=== PATIENT | female | born 1960 | race Two or more races ===

== ENCOUNTER 2016-03-10 12:40 | Emergency (ER) | payer OTHER ==
[2016-03-10 12:46] VITALS: BP 133/81; PULSE 75; TEMP 97.6; BMI 23.9
--- NOTE | 2016-03-10 12:49 | PDOC ---
History of Present Illness - General Chief Complaint: Chest Pain Stated Complaint: CHEST PAIN, THROAT PAIN, DRY COUGH Time Seen by Provider: 03/10/16 12:46 History Source: Patient Exam Limitations: No Limitations - History of Present Illness Initial Comments: 03/10/16 12:49 This is a 55 yo F with a history of seasonal asthma Pt presents to the ER with a complaint of chest pain radiating to the throat Pt states, she was in her usual state of health until 4 days ago when she noted chest tightness Symptoms have been constant for the past 4 days She has noted diaphoresis at night (unsure if this is due to menopause?) Pt denies nausea No radiation of pain to the back, arm or jaw Pt also noted a dry cough She denies shortness of breath pt states she has modified her diet to avoid heavy meals - she is eating bread, pasta, tea No prior episodes like this Has not had an endoscopy Does report a history of epigastric burning with certain meals but never formally diagnosed with GERD Pt contacted her PMD 3 times, no response, came to the ER PMH: Asthma PSH: biopsy during (on throat?) Meds: albuterol prn ALL: PCN --> Social: denies tobacco use Family history: no history of early heart disease, mother has HTN GENERAL/CONSTITUTIONAL: No: fever, chills, weakness, loss of appetite. HEAD, EYES, EARS, NOSE AND THROAT: No: change in vision, ear pain, discharge, sore throat, throat swelling. CARDIOVASCULAR: Yes: chest pain/tightness No: lightheadedness, palpitations, syncope RESPIRATORY: No: cough, shortness of breath, wheezing, hemoptysis, stridor. GASTROINTESTINAL: No: nausea, vomiting, diarrhea, abdominal cramping, rectal bleeding, constipation. GENITOURINARY: No: dysuria, hematuria, frequency, urgency, flank pain. MUSCULOSKELETAL: No: back pain, neck pain, joint pain, muscle swelling or pain SKIN AND BREASTS: No: lesions, pallor, rash or easy bruising. NEUROLOGIC: No: headache, vertigo, paresthesias, weakness ENDOCRINE: No: unexplained weight gain or loss HEMATOLOGIC/LYMPHATIC: No: anemia, easy bleeding, swelling nodes. GENERAL: The patient is in no acute distress. HEAD: Normal with no signs of trauma. EYES: PERRLA, EOMI, sclera anicteric, conjunctiva clear. ENT: Ears normal, nares patent, oropharynx clear without exudates. Moist mucous membranes. NECK: Normal range of motion, supple without lymphadenopathy, JVD, or masses. LUNGS: Breath sounds equal, clear to auscultation bilaterally. No wheezes, and no crackles. HEART:Regular rate and rhythm, normal S1 and S2 without murmur, rub or gallop. No chest wall tenderness to palpation ABDOMEN: Soft, epigastric tenderness to palpation, otherwise nontender, normoactive bowel sounds. No guarding, no rebound. No masses palpable. EXTREMITIES: Normal range of motion, no edema. No clubbing or cyanosis. No erythema, or tenderness. NEUROLOGICAL: Cranial nerves II through XII grossly intact. Normal speech. No focal neurological deficits. MUSCULOSKELETAL: Back non-tender to palpation, no CVA tenderness SKIN: Warm, Dry, normal turgor, no rashes or lesions noted. 03/10/16 13:14 Past History - Past Medical History Allergies/Adverse Reactions: Allergies Allergy/AdvReac Type Severity Reaction Status Date / Time Penicillins Allergy Mild Hives Verified 03/10/16 12:44 Home Medications: Ambulatory Orders Albuterol Sulfate Inhaler - [Ventolin Hfa Inhaler -] 1 - 2 inh PO QID PRN Asthma: Yes (SEASONAL ONLY) - Psycho/Social/Smoking Cessation Hx Anxiety: No Suicidal Ideation: No Smoking History: Never smoked Hx Alcohol Use: No Drug/Substance Use Hx: No Substance Use Type: None *Physical Exam - Vital Signs Last Vital Signs Temp Pulse Resp BP Pulse Ox 97.6 F 75 18 133/81 100 03/10/16 12:40 03/10/16 12:40 03/10/16 12:40 03/10/16 12:40 03/10/16 12:40 Heart Score/ECG Review - History History: Slightly suspicious - Electrocardiogram EKG: Normal - Age Age: 45-65 - Risk Factors Based on the list above the patient has:: No risk factors known - Troponin Troponin: </= normal limit - Score Heart Score - Total: 1 #1 ECG reviewed & interpreted by me at: 13:14 General ECG Interpretation: Sinus Rhythm, Normal Rate, Normal Intervals, No acute ischemic changes ED Treatment Course - LABORATORY CBC & Chemistry Diagram: 03/10/16 13:10 03/10/16 13:10 Medical Decision Making - Medical Decision Making 03/10/16 13:15 Will do labs Will do EKG Will do CXR I have explained to this patient that she would benefit from an observation stay in the hospital as cardiac disease can not be entirely ruled out on one EKG or one set of labs Pt states she can not do that and would like to go home 03/10/16 14:06 03/10/16 14:07 Laboratory Tests 03/10/16 03/10/16 03/10/16 13:10 13:10 13:10 WBC 4.8 Hgb 11.7 Hct 35.4 Plt Count 299 Neutrophils % 50.1 Lymphocytes % 41.0 H Sodium 135 L Potassium 3.6 Chloride 100 Carbon Dioxide 27 BUN 12 Creatinine 0.7 D Random Glucose 87 Creatine Kinase 75 Troponin I < 0.03 L 03/10/16 14:[address] Hoskins covering Dr Duncan Pt will be sent to Cardiology Pt states she had gingerale and belched She felt much better At this time, she is not willing to stay in the ER Will discharge to home I have stressed the importance of prompt follow up and return to the ER immediately for any concerns or complaints OR persistence of symptoms She will try taking Zantac I discussed the physical exam findings, ancillary test results and final diagnoses with the patient. I answered all of the patient's questions. The patient was satisfied with the care received and felt comfortable with the discharge plan and treatment plan. The patient will call their primary care physician within 24 hours to arrange follow-up and will return to the Emergency Department with any new, persistent or worsening symptoms. Clinical impression: Chest tightness *DC/Admit/Observation/Transfer Diagnosis at time of Disposition: Chest tightness - Discharge Dispostion Disposition: HOME Condition at time of disposition: Stable Admit: No - Referrals Referrals: Jarvis Duncan MD [Primary Care Provider] - - Patient Instructions Printed Discharge Instructions: DI for Atypical Chest Pain, DI for Chest Pain Additional Instructions: Ruth Thank you for coming in to the ER today Please monitor yourself for persistent symptoms At this time, I can not guarantee that you do not have heart disease Although I would prefer that you stay in the hospital, because you want to leave , I have contacted Dr Hoskins He is contacting Dr Duncan and trying to obtain follow up for you with [place] and cardiology Please be sure to follow up next week Return immediately to the ER for persistent symptoms, new symptoms, any other concerns or complaints
[2016-03-10 13:23] LABS: BASOPHIL 0.9 % (0-2.0); MCH 29.5 pg (25.7-33.7); MCHC 33.1 g/dl (32.0-36.0); MEAN CELL VOLUME 89.2 fl (80-96); MEAN PLT VOLUME 7.7 fl (7.5-11.1); NEUTROPHILS 50.1 % (42.8-82.8); PLATELET COUNT 299 K/MM3 (134-434); RDW 12.5 % (11.6-15.6); WHITE BLOOD COUNT 4.8 K/mm3 (4.0-10.0)
[2016-03-10 13:42] LABS: ALBUMIN 4.2 g/dl (3.5-5.0); ALK PHOS 79 U/L (32-92); ANION GAP 8 (8-16); BILIRUBIN,TOTAL 0.6 mg/dl (0.2-1.0); CALCIUM 9.5 mg/dl (8.4-10.2); CO2 27 mmol/L (22-28); CREATININE 0.7 mg/dl (0.6-1.3); GLUCOSE,RANDOM 87 mg/dl (74-106); SGOT/AST 26 U/L (10-42); SGPT/ALT 37 U/L (10-40); TOT PROT 6.9 g/dl (6.4-8.3)
[2016-03-10 13:43] LABS: CPK(DFH) 75 IU/L (26-140)
[2016-03-10 13:52] LABS: TROPONIN I (DFP) < 0.03 ng/ml (0.03-0.50)
--- NOTE | 2016-03-11 18:13 | EKG ---
Test Reason : Blood Pressure : / mmHG Vent. Rate : 068 BPM Atrial Rate : 068 BPM P-R Int : 178 ms QRS Dur : 076 ms QT Int : 402 ms P-R-T Axes : 078 047 061 degrees QTc Int : 427 ms NORMAL SINUS RHYTHM NORMAL ECG NO PREVIOUS ECGS AVAILABLE Confirmed by YUAN WHITE MD ([id number]) on 03/11/2016 6:12:51 PM Referred By: DEYA THIBODEAUX Confirmed By:YUAN WHITE MD
== END 2016-03-10 14:36 | disposition home or self-care (01) ==
LOC: FER 12:40
DX: R07.89 Other chest pain (principal); J30.2 Other seasonal allergic rhinitis
CPT/HCPCS: 36415; 71010-TC; 80053; 82550; 84484; 85025; 93005; 99285-25

== ENCOUNTER → 2018-04-29 | Day surgery (SDC) | payer OTHER ==
--- NOTE | 2018-04-30 15:20 | PATH ---
Cytology Non-Gynecological Report Patient Name: AGATHA SALMON [facility]. Rec. #: [id number] /Age/Gender: 1960 (Age: 58) / F Account: [id number] Location: RADIOLOGY INTER Taken: 04/29/2018 Received: 04/29/2018 Reported: 04/30/2018 Physicians: Leatha Kumar M.D. Specimen(s) Received LEFT THYROID FNA Clinical History Left thyroid nodule, 2.21 x 2.67 x 1.58 cm Final Diagnosis THYROID, LEFT, FINE NEEDLE ASPIRATION: SATISFACTORY FOR EVALUATION. BETHESDA CLASS II: BENIGN. CYTOLOGIC FINDINGS ARE CONSISTENT WITH A BENIGN FOLLICULAR NODULE WITH POST-HEMORRHAGIC CHANGE. FOLLICULAR CELLS WITH FOCAL REACTIVE CHANGES IN A BACKGROUND OF COLLOID, FEW LYMPHOCYTES, LYMPHOID TANGLES, AND HEMOSIDERIN-LADEN MACROPHAGES. Comment: The presence of lymphocytes raise the possibility of chronic lymphocytic thyroiditis. Suggest clinical/radiologic, and serologic correlation. Electronically Signed Trixie Rahman M.D. Gross Description Received are eight direct smears, four of which are air-dried and Diff-Quik stained, and four of which are alcohol fixed and Pap stained. Also received is 20 ml of bloody formalin from which one cellblock is prepared.
== END | disposition home or self-care (01) ==
LOC: JRADIR 08:22
PROVIDERS: ATTEND Internal Medicine Endocrinology, Diabetes & Metabolism
PROC: 0GBG3ZX Excision of Left Thyroid Gland Lobe, Percutaneous Approach, Diagnostic (ICD-10-PCS; principal; 2018-04-29)
DX: E04.1 Nontoxic single thyroid nodule (principal)
CPT/HCPCS: 76942; 88173; 88305-TC

== ENCOUNTER → 2018-05-14 | Day surgery (SDC) | payer OTHER ==
--- NOTE | 2018-05-15 17:24 | PATH ---
Cytology Non-Gynecological Report Patient Name: AGATHA SALMON [facility]. Rec. #: [id number] /Age/Gender: 1960 (Age: 58) / F Account: [id number] Location: RADIOLOGY INTER Taken: 05/14/2018 Received: 05/14/2018 Reported: 05/15/2018 Physicians: Leatha Kumar M.D. Specimen(s) Received RIGHT THYROID FNA Clinical History Right thyroid nodule, 1.58 x 1.46 x 1.36 cm Final Diagnosis THYROID, RIGHT, FINE NEEDLE ASPIRATION: SATISFACTORY FOR EVALUATION. BETHESDA CLASS II: BENIGN. CYTOLOGIC FINDINGS ARE CONSISTENT WITH A BENIGN FOLLICULAR NODULE. SMALL FOLLICULAR CELLS DISPERSED CLUSTERS AND SHEETS IN A BACKGROUND OF SCATTERED LYMPHOCYTES, RARE MACROPHAGES, AND FEW LYMPHOID TANGLES PRESENT. Comment: Presence of lymphocytes raise the possibility of chronic lymphocytic thyroiditis. Suggest clinical/radiologic and serologic correlation. Prior materials noted. Electronically Signed Trixie Rahman M.D. Gross Description Received are eight direct smears, four of which are air-dried and Diff-Quik stained, and four of which are alcohol fixed and Pap stained. Also received is 20 ml of bloody formalin from which one cellblock is prepared.
== END | disposition home or self-care (01) ==
LOC: JRADIR 09:20
PROVIDERS: ATTEND Internal Medicine Endocrinology, Diabetes & Metabolism
PROC: 0G9K3ZX Drainage of Thyroid Gland, Percutaneous Approach, Diagnostic (ICD-10-PCS; principal; 2018-05-14)
DX: E04.1 Nontoxic single thyroid nodule (principal)
CPT/HCPCS: 10005; 76942; 88173; 88305-TC

== ENCOUNTER 2018-06-13 08:31 | Emergency (ER) | payer OTHER ==
--- NOTE | 2018-06-13 08:40 | PDOC ---
History of Present Illness - General Chief Complaint: Rectal Bleed Stated Complaint: rectal bleeding Time Seen by Provider: 06/13/18 08:38 - History of Present Illness Initial Comments: 06/13/18 09:59 58 years old with no significant past medical history presents to the emergency department with 2 day history of rectal bleeding. No fever no travel no recent sick contacts blood was noted painlessly when wiping yesterday and then one episode today small amount in the toilet. History of similar but with hemorrhoids Patient has had a colonoscopy within the last 4 years which patient states was normal Past History - Past Medical History Allergies/Adverse Reactions: Allergies Allergy/AdvReac Type Severity Reaction Status Date / Time Penicillins Allergy Mild Hives Verified 06/13/18 08:33 Home Medications: Ambulatory Orders Albuterol Sulfate Inhaler - [Ventolin HFA Inhaler -] 1 - 2 inh PO QID PRN [place] 70 Mg/Ml 70 mg SQ MONTHLY 06/13/18 Asthma: Yes (SEASONAL ONLY) COPD: No Diabetes: No HTN: No Hypercholesterolemia: Yes - Suicide/Smoking/Psychosocial Hx Smoking History: Never smoked Have you smoked in the past 12 months: No Hx Alcohol Use: (occasional) Drug/Substance Use Hx: No Substance Use Type: None Review of Systems - Review of Systems Comments:: 06/13/18 09:59 ROS: A complete review of 10 out of 10 review of systems is taken and is negative apart from what is previously mentioned below and in the HPI. *Physical Exam - Physical Exam Comments: Vitals: Triage Vital signs reviewed General Appearance: no acute distress, well nourished well developed, Head: Atraumatic, Cardiac: Regular rate and rhythym, no murmurs, no rubs, no gallops, Lungs: Clear to auscultation bilateral, good air movement bilaterally, Abdomen: Soft, non distended, normal bowel sounds, non tender to palpation Rectal: guaic neg brown stool, no hemmoroids or fissures Extremities: Full range of motion to all extremities, no cyanosis, clubbing, or edema Skin: Warm and dry, no rashes or lesions, no rash, no petechiae Psych: normal mood, normal affect ED Treatment Course - LABORATORY CBC & Chemistry Diagram: 06/13/18 08:50 06/13/18 08:50 Medical Decision Making - Medical Decision Making 06/13/18 19:28 Well-appearing no apparent distress no active bleeding in the emergency department hemodynamically stable patient will follow up with her primary care provider next week and with her tool pusher tomorrow When patient initially presented to the ED should very mild right lower quadrant discomfort serial abdominal exam is a shins were performed abdominal pain has resolved she has no fever no white count low suspicion for appendicitis at this time Shared decision-making used we will hold off on a CAT scan of her abdomen pelvis at this time should her pain return or her symptoms worsen she'll return to the emergency department immediately Findings, the need for follow-up and strict return instructions discussed patient. *DC/Admit/Observation/Transfer Diagnosis at time of Disposition: Rectal bleed - Discharge Dispostion Disposition: HOME Condition at time of disposition: Fair Decision to Admit order: No - Referrals Referrals: Jarvis Duncan MD [Primary Care Provider] - Gentry Woods MD [Staff Physician] - - Patient Instructions Printed Discharge Instructions: DI for Rectal Bleeding Additional Instructions: Follow up with Dr. Woods tomorrow morning at 9am. Return to the emergency department for any fever severe worsening abdominal pain increasing bleeding dizziness lightheadedness or for any concerns. - Post Discharge Activity
[2018-06-13 08:45] VITALS: BP 120/80; PULSE 78; TEMP 97.6; BMI 24.4
[2018-06-13 09:13] LABS: BASO % 0.8 % (0-2.0); EOS % 1.2 % (0-4.5); HEMATOCRIT 34.5 % (32.4-45.2); HEMOGLOBIN 11.5 GM/dl (10.7-15.3); LYMPH % 35.9 % (8-40); MCHC 33.4 g/dl (32.0-36.0); MEAN CELL VOLUME 92.7 fl (80-96); MONO % 8.3 % (3.8-10.2); NEUT % 53.8 % (42.8-82.8); PLATELET COUNT 293 K/MM3 (134-434); RBC 3.72 M/mm3 (3.60-5.2); RDW 12.6 % (11.6-15.6); WHITE BLOOD COUNT 4.3 K/mm3 (4.0-10.8)
[2018-06-13 09:21] LABS: ALBUMIN 3.9 g/dl (3.4-5.0); BILIRUBIN,TOTAL 0.5 mg/dl (0.2-1); CALCIUM 9.1 mg/dl (8.5-10); CREATININE 0.7 mg/dl (0.55-1.3); POTASSIUM 3.9 mmol/L (3.5-5.1); TOT PROT 6.9 g/dl (6.4-8.2)
== END 2018-06-13 10:05 | disposition home or self-care (01) ==
LOC: FER 08:31
DX: K62.5 Hemorrhage of anus and rectum (principal); Z88.0 Allergy status to penicillin
CPT/HCPCS: 36415; 80053; 82272; 85025; 99282-25

== ENCOUNTER 2019-10-22 13:51 | Emergency (ER) | payer OTHER ==
[2019-10-22 14:10] VITALS: BMI 24.7
[2019-10-22 14:52] LABS: BASO % 2.4 % (0-2.0); EOS % 0.2 % (0-4.5); HEMATOCRIT 36.7 % (32.4-45.2); HEMOGLOBIN 11.9 GM/dl (10.7-15.3); MCH 30.5 pg (25.7-33.7); MCHC 32.4 g/dl (32.0-36.0); MEAN CELL VOLUME 93.9 fl (80-96); MEAN PLT VOLUME 8.1 fl (7.5-11.1); NEUT % 60.4 % (42.8-82.8); PLATELET COUNT 329 K/MM3 (134-434); RDW 12.7 % (11.6-15.6); WHITE BLOOD COUNT 5.6 K/mm3 (4.0-10.8)
[2019-10-22 15:00] LABS: ALBUMIN 4.2 g/dl (3.4-5.0); BILIRUBIN,TOTAL 0.4 mg/dl (0.2-1); CALCIUM 8.9 mg/dl (8.5-10); CREATININE 0.7 mg/dl (0.55-1.3); TOT PROT 7.3 g/dl (6.4-8.2)
[2019-10-22 15:05] LABS: EPITHELIAL CELLS FEW /hpf
--- NOTE | 2019-10-22 15:23 | PDOC ---
Attending Attestation - Resident Resident Name: Augie Joaquin - ED Attending Attestation I have performed the following: I have examined & evaluated the patient, The case was reviewed & discussed with the resident, I agree w/resident's findings & plan, Exceptions are as noted - HPI HPI: 10/22/19 15:18 59 yo F with h/o known liver cyst here with intermittent right-sided abdominal pain over the last several days. Patient states she did see her PCP 2 days ago who subsequently gave her prescription for a right upper quadrant and renal ultrasound the patient states that she went for her ultrasound at [facility] however was denied the test by the tech organizational effectiveness director due to the fact that she had recently had an ultrasound done. Patient states she is getting nauseous the pain does radiate to her shoulder, no other moderating factors no associated fevers no vomiting no dysuria or urinary urgency does not associate her pain with food. She did also see Dr. Moreira and is scheduled for an endoscopy to be done within 72 hours to evaluate this pain. - Physicial Exam PE: 10/22/19 15:21 awake alert lungs clear bilat heart rrr no mrg abd soft right sided mid quadrant ttp, epigastric ttp. no rebound no guarding. no cva tenderness. ext wwp. no edema. no calf tenderenss. - Medical Decision Making 10/22/19 15:22 59-year-old female here complaining of right-sided mid abdominal pain and epigastric pain known to have a right-sided liver cyst here for evaluation for her pain states she was supposed to have an outpatient ultrasound which suddenly got canceled by the tech who was to perform the study. On my exam patient has minimal right sided mid abdominal tenderness and epigastric tenderness no rebound no guarding no lower abdominal tenderness discussion with the patient she did recently have a normal pelvic ultrasound showing no cysts within the last 2 months. Differential includes cholelithiasis renal colic pyelonephritis UTI or peptic ulcer disease. She is scheduled to get an outpatient endoscopy in the next few days by Dr. Vesta lai for ultrasound right upper quadrant and renal ultrasound Right upper quadrant ultrasound is unremarkable gallbladder however she does have a liver cyst noted urine is positive for hematuria labs are otherwise unremarkable will obtain a renal stone protocol CT to rule out any stone to evaluate her hematuria 10/22/19 16:12 ct with fatty liver, small free fluid , renal cyst, and pulmonary nodule. no ureteral calculi. 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 ua with hematuria, pt to be given urology followup. pt scheduled for endoscopy in next week with dr moreira. told will need pulmonary followup for pulmonary nodule. given referral for dr martínez. 10/22/19 16:[address] joaquin d/w dr moreira, who would like pt to be put on cipro, prior to endoscopy, who is concerned for chronic picture of cholecystitis. d/w dr moreira regarding furhter imaging and workup, small ascites seen on us. states will order outpt hida scan, and continue to follow. dr pena pt pcp called, awaiting call back. Heart Score/ECG Review #1 General ECG Interpretation: Sinus Rhythm, Normal Rate (76), Normal Intervals, No acute ischemic changes Discharge - Discharge Information Problems reviewed: Yes Clinical Impression/Diagnosis: Fatty liver, Pulmonary nodule Condition: Improved Disposition: HOME - Admission No - Follow up/Referral Referrals: Augustin Manning MD [Staff Physician] - Gentry Moreira MD [Staff Physician] - Juli Pena MD [Primary Care Provider] - Sergio Dale MD [Staff Physician] - - Patient Discharge Instructions Patient Printed Discharge Instructions: Acute Abdominal Pain, Nonalcoholic Fatty Liver Disease, DI for Pulmonary Nodule Additional Instructions: your ct abdomen shows a pulmonary nodule, for which you will need pulmonary followup in 2 weeks see referral infomration for dr Martínez. call to schedule. . you may also need repeat imaging within one year. call to schedule. referral information attached. you should also follow up with dr moreira as scheduled for endoscopy. in 2 days. your field broomer dr moreira is recommending a course of antiobiotics of ciprofloxacin 500 mg twice daily x 7 days. you also need follow up for your liver cyst and fatty liver. there is small amount of fluid around the liver, and may require further imaging with MRI depending on GI recommendations. return for any fever, vomiting, or any concerns. - Post Discharge Activity
--- NOTE | 2019-10-22 16:12 | PDOC ---
History of Present Illness - General Chief Complaint: Pain Stated Complaint: RIGHT SIDED ABDOMINAL PAIN SINCE SUNDAY Time Seen by Provider: 10/22/19 14:03 Past History - Medical History Allergies/Adverse Reactions: Allergies Allergy/AdvReac Type Severity Reaction Status Date / Time Penicillins Allergy Mild Hives Verified 10/22/19 14:10 Home Medications: Ambulatory Orders Atorvastatin Ca [Lipitor] 20 mg PO HS 10/22/19 Ciprofloxacin [Cipro -] 500 mg PO BID 7 Days #14 tablet 10/22/19 Asthma: Yes (SEASONAL ONLY) COPD: No Diabetes: No GI Disorders: Yes (ACID REFLUX) HTN: No Hypercholesterolemia: Yes Other medical history: MIGRAINE - Psycho-Social/Smoking History Smoking History: Never smoked Have you smoked in the past 12 months: No Information on smoking cessation initiated: No - Substance Abuse Hx (Audit-C & DAST Scrn) How often the patient has a drink containing alcohol: Never Score: In Men: 4 or > Positive; In Women: 3 or > Positive: 0 Screen Result (Pos requires Nsg. Audit-10AR): Negative In the last yr the pt used illegal drug/Rx for NonMed reason: No Score: Yes response is considered Positive: 0 Screen Result (Positive result requires Nsg. DAST-10): Negative *Physical Exam - Vital Signs Last Vital Signs Temp Pulse Resp BP Pulse Ox 98.3 F 100 H 18 140/102 H 99 10/22/19 13:53 10/22/19 13:53 10/22/19 13:53 10/22/19 13:53 10/22/19 13:53 ED Treatment Course - LABORATORY CBC & Chemistry Diagram: 10/22/19 14:30 10/22/19 14:30 - ADDITIONAL ORDERS Additional order review: Laboratory Results 10/22/19 10/22/19 14:33 14:30 Sodium 134 L Potassium 4.0 Chloride 105 Carbon Dioxide 23 Anion Gap 6 L BUN 14.0 Creatinine 0.7 Est GFR (CKD-EPI)AfAm 111.47 Est GFR (CKD-EPI)NonAf 96.18 Random Glucose 87 Calcium 8.9 Total Bilirubin 0.4 AST 22 ALT 23 Alkaline Phosphatase 80 Total Protein 7.3 Albumin 4.2 Urine Color Yellow Urine Appearance Clear Urine pH 7.0 Urine Protein Negative Urine Glucose (UA) Negative Urine Ketones Negative Urine Blood 2+ H Urine Nitrite Negative Urine Bilirubin Negative Urine Urobilinogen 0.2 Ur Leukocyte Esterase Negative Urine RBC 5-10 Urine WBC 0-2 Ur Transition Epith Cell Few 10/22/19 14:30 RBC 3.90 MCV 93.9 MCHC 32.4 RDW 12.7 MPV 8.1 Neutrophils % 60.4 Lymphocytes % 31.0 Monocytes % 6.0 Eosinophils % 0.2 Basophils % 2.4 H - RADIOLOGY Radiology Studies Ordered: Category Date Time Status CHEST X-RAY PORTABLE* [RAD] Stat Radiology 10/22/19 14:25 Taken ABDOMEN US -LIMITED [US] Stat Ultrasound 10/22/19 14:27 Completed KIDNEY / RENAL US [US] Stat Ultrasound 10/22/19 14:28 Completed Discharge - Discharge Information Problems reviewed: Yes Clinical Impression/Diagnosis: Fatty liver, Pulmonary nodule Condition: Improved Disposition: HOME - Follow up/Referral Referrals: Augustin Manning MD [Staff Physician] - Gentry Moreira MD [Staff Physician] - Juli Chamorro MD [Primary Care Provider] - Jericho Guzmán MD [Staff Physician] - - Patient Discharge Instructions Patient Printed Discharge Instructions: Acute Abdominal Pain, Nonalcoholic Fatty Liver Disease, DI for Pulmonary Nodule Additional Instructions: Your ct abdomen shows a pulmonary nodule, for which you will need pulmonary followup in 2 weeks see referral infomration for dr Abdullahi. call to schedule. . you may also need repeat imaging within one year. call to schedule. referral information attached. you should also follow up with dr moreira as scheduled for endoscopy. in 2 days. your home health outreach coordinator dr moreira is recommending a course of antiobiotics of ciprofloxacin 500 mg twice daily x 7 days. You need to call to make an appointment with your Urologist due to significant blood in the urine. you also need follow up for your liver cyst and fatty liver. there is small amount of fluid around the liver, and may require further imaging with MRI depending on GI recommendations. return for any fever, vomiting, or any concerns. - Post Discharge Activity
[2019-10-22 16:53] VITALS: BP 137/95; PULSE 88; TEMP 97.9
[2019-10-22 17:22] LABS: INR 0.93 (0.83-1.09)
--- NOTE | 2019-10-23 09:54 | EKG ---
Test Reason : Blood Pressure : / mmHG Vent. Rate : 076 BPM Atrial Rate : 076 BPM P-R Int : 182 ms QRS Dur : 074 ms QT Int : 378 ms P-R-T Axes : 066 022 049 degrees QTc Int : 425 ms NORMAL SINUS RHYTHM NORMAL ECG WHEN COMPARED WITH ECG OF 27-JAN-2018 11:21, NO SIGNIFICANT CHANGE WAS FOUND Confirmed by MANUEL ANDRE MD ([id number]) on 10/23/2019 9:53:44 AM Referred By: ANNIKA LAGUNAS Confirmed By:MANUEL ANDRE MD
== END 2019-10-22 16:55 | disposition home or self-care (01) ==
LOC: FER 13:51
DX: K76.0 Fatty (change of) liver, not elsewhere classified (principal); R91.1 Solitary pulmonary nodule
CPT/HCPCS: 36415; 71045-TC-FY; 74176-TC; 76705-TC; 76775-TC; 80053; 81003; 81015; 83690; 85025; 85610; 87086; 93005; 99285-25

== ENCOUNTER → 2021-05-25 | Day surgery (SDC) | payer OTHER ==
[2021-05-25 11:41] LABS: EPI CELLS 17 /uL (0-25.1); HEMATOCRIT 34.1 % (32.4-45.2); HEMOGLOBIN 11.6 GM/dL (10.7-15.3); HYALINE CASTS 2 /uL (0-3.1); MCH 30.5 pg (25.7-33.7); MCHC 33.9 g/dl (32.0-36.0); MEAN CELL VOLUME 90.1 fl (80-96); MEAN PLT VOLUME 8.1 fl (7.5-11.1); PLATELET COUNT 264 10^3/uL (134-434); RBC 3.79 M/mm3 (3.60-5.2); RDW 13.6 % (11.6-15.6); URINE APPEARANCE CLEAR; URINE BACTERIA 47 /uL (0-1359); URINE BILIRUBIN NEGATIVE (NEGATIVE); URINE COLOR YELLOW; URINE GLUCOSE (UA) NEGATIVE (NEGATIVE); URINE KETONE NEGATIVE (NEGATIVE); URINE LEUK ESTERASE NEGATIVE (NEGATIVE); URINE NITRITE NEGATIVE (NEGATIVE); URINE PROTEIN NEGATIVE (NEGATIVE); URINE RBC 116 /uL (0-23.9); URINE UROBILINOGEN 0.2 mg/dL (0.2-1.0); URINE WBC 7 /uL (0-25.8)
[2021-05-25 11:58] LABS: CHLORIDE 105 mmol/L (98-107); SODIUM 140 mmol/L (136-145)
[2021-05-25 12:02] LABS: CALCIUM 8.9 mg/dL (8.5-10.1)
[2021-05-25 12:03] LABS: ALBUMIN 3.5 g/dl (3.4-5.0); ANION GAP 5 MMOL/L (8-16); BLOOD UREA NITROGEN 13.8 mg/dL (7-18); CO2 29 mmol/L (21-32); GLUCOSE,RANDOM 85 mg/dL (74-106)
[2021-05-25 12:05] LABS: CREATININE 0.8 mg/dL (0.55-1.3)
[2021-05-25 12:06] LABS: CHOLESTEROL 286 mg/dL (50-200); SGOT/AST 28 U/L (15-37); SGPT/ALT 51 U/L (13-61); TRIGLYCERIDES 86 mg/dL (0-150)
[2021-05-25 12:07] LABS: BILIRUBIN,TOTAL 0.3 mg/dL (0.2-1); LDL CHOLESTEROL (ONLY SJRH) 178 mg/dL (5-100)
[2021-05-25 12:08] LABS: ALK PHOS 88 U/L (45-117); HDL CHOLESTEROL 78 mg/dL (40-60)
== END | disposition home or self-care (01) ==
LOC: JRADIR 09:34
PROVIDERS: ATTEND Internal Medicine Endocrinology, Diabetes & Metabolism
PROC: 0G9K3ZX Drainage of Thyroid Gland, Percutaneous Approach, Diagnostic (ICD-10-PCS; principal; 2021-05-25)
DX: E04.1 Nontoxic single thyroid nodule (principal)
CPT/HCPCS: 10005; 36415; 76942; 80053; 80061; 81003; 82306; 82607; 83036; 84443; 85027; 88173; 88305-TC

== ENCOUNTER → 2021-08-17 | Day surgery (SDC) | payer OTHER | END | disposition home or self-care (01) | LOC: JRADIR 09:19 | PROVIDERS: ATTEND Internal Medicine Endocrinology, Diabetes & Metabolism | PROC: 0G9K3ZX Drainage of Thyroid Gland, Percutaneous Approach, Diagnostic (ICD-10-PCS; principal; 2021-08-17) | DX: E04.1 Nontoxic single thyroid nodule (principal) | CPT/HCPCS: 10005; 76942; 88173; 88305-TC ==